=== PATIENT | female | born 1975 | race Caucasian/White ===

== ENCOUNTER 2025-07-29 01:06 | Emergency (ER) | payer MEDICAID ==
[~2025-07-29] VITALS: Ht 172.7 cm; Wt 68.2 kg
--- NOTE | 2025-07-29 01:19 | Physician Documentation ---
History of Present Illness ~ Chief Complaint: Shoulder pain Stated Complaint: SHOULDER PAIN S/P FALL Time Seen by MD: 01:12 Primary Medical Doctor: MASOOD NIX This is a 49-year-old female who had a few drinks earlier in the night, going down the stairs lost her balance and fell down on a concrete floor striking the floor with her left shoulder. She reports an immediate onset sharp nonradiating pain in her right upper extremity/right shoulder. Worse with a any range of motion. Palliated with the position of comfort. Did not attempt to treat it with a any medication. She reports that her shoulder feels crunchy. Adamantly denies any head strike. Denies any headache or neck pain. Did not lose consciousness. Denies any other symptoms. Medication Reconciliation Allergies: Coded Allergies: Penicillins (Unverified Allergy, Unknown, 07/29/25) Past Medical History Past Medical History: No Pertinent History Alcohol Use: None Drug Use: none Review of Systems ROS 10 point review of systems was performed and unless noted above in HPI is negative for acute process/complaint. Physical Exam Vital Signs: Temperature: 96.8, Source: Temporal, Heart Rate: 80, Respiratory Rate: 15, BP: 120/73, Pulse Oximetry: 98 Physical Exam GENERAL: Awake, alert, oriented, GCS 15, no apparent distress, non-toxic appearing, answers questions, follows commands appropriately. Examined in triage and placed in bed 11 HEENT: Atraumatic, normocephalic, pupils equal, extraocular muscles intact, sclerae anicteric, mucus membranes moist, oropharynx is clear, no stridor. NECK: supple, full active range of motion, trachea midline, no thyromegaly, no lymphadenopathy, no JVD. CARDIOVASCULAR: regular rate/rhythm, no murmurs/gallops/rubs, Pulses are 2+ in all extremities and symmetric. Capillary refill less than 2 seconds. PULMONARY: Nonlabored, good air movement ,no respiratory distress, speaking in full sentences, clear to auscultation bilaterally, no wheezing, no ronchi, no rales, no accessory muscle use. GASTROINTESTINAL: Soft, non-tender, non-distended, normal active bowel sounds, no organomegaly, no pulsatile masses, no CVA tenderness. NEUROLOGIC: Lucid with normal mental status. Normal facial symmetry. Moves all extremities symmetrically and with purpose. No truncal ataxia. Speech is fluid without evidence of dysarthria or aphasia, no focal deficits appreciated. MUSCULOSKELETAL: There is full range of motion of all extremities. There is no joint pain or joint swelling or joint erythema. There is no muscle pain or tenderness or swelling. EXTREMITIES: warm, well-perfused, no cyanosis, no clubbing, no edema, no acute deformities. Skin: warm, dry, no rashes or lesions, no jaundice, no petechiae orpurpura. No ecchymosis. PSYCHIATRIC: Normal affect, normal insight, normal concentration. Focused exam: Left clavicle is examined. It appears to be intact. There is tenderness to palpation over the left humeral head. Range of motion not tested due to pain. No tenderness to palpation of medial or lateral epicondyle of the elbow, full passive range of motion of the elbow. Full range of motion of the wrist fingers. Neurovascularly intact distal to the site of injury. Progress Results/Orders Results/Orders Orders - RAN CALDERON DO Shoulder, Complete (Min 2 Vws) (07/29/25 01:11) * Arm Sling To Be Placed Overn (07/29/25 01:33) Completed Orders - RAN CALDERON DO Shoulder, Complete (Min 2 Vws) (07/29/25 01:11) Ketorolac Trometh 30mg/Ml Vial (Toradol (07/29/25 01:15) Medications Received in ER Medications (Trade) Dose Ordered Sig/Alysia Route PRN Reason Start Time Stop Time Status Last Admin Dose Admin (Toradol inj. 30mg/ml) 30 mg ONCE ONCE IM 07/29/25 01:15 07/29/25 01:16 DC 07/29/25 01:26 30 MG Vital Signs 07/29/25 07/29/25 07/29/25 01:09 01:26 01:29 Temp 96.8 Pulse 80 Resp 15 18 18 B/P (MAP) 120/73 Pulse Ox 98 Medical Decision Making Additional information obtaine: family Findings Facility Status: ED Holds, [facility] process The plan was discussed with the patient, who demonstrates clear understanding of the plan and is in agreement with the plan unless otherwise noted in the chart. All questions have been answered, all concerns were addressed unless otherwise documented. I was available throughout their ED stay for frequent reassessment and questions. Differential Diagnoses (considered and possible or likely): [Fall, acute traumatic pain, alcohol intoxication, left shoulder fracture versus dislocation versus contusion.] ??Differential Diagnoses (considered and unlikely, not requiring evaluation currently): [No evidence of neurovascular injury. She adamantly denies any head injury/head strike. Unlikely subdural, subarachnoid, cervical spine fracture or dislocation.] MDM Data Please see [facility] for the following: Independent Historians and external Records Review. Historian: [Patient] Independent Historians: ?[Family] Medication Management: [Reviewed medication list] Social History and determinants: [Reviewed] Please see the body of the note for the following: Any independent interpretations of ECG, imaging studies. All vitals signs/haemodynamics, ordered tests were independently reviewed and interpreted by myself. Nursing triage complaint and vitals reviewed, additional nursing notes were reviewed as available and I agree unless otherwise noted or documented in contradiction in the chart Vital Signs: Independently reviewed Labs: Independently interpreted Imaging: Independently interpreted Old Medical Records: Independently reviewed, see [facility] for relevant summary and information Pulse Oximetry: [98%] interpreted as [normal on room air] by me Additionally notably showing: [Hemodynamically stable. X-ray shows femoral neck fracture.] Tests considered but not ordered include: [Hematologic workup has been considered but does not appear to be necessary given mechanical nature of the injury.] Social Determinants of Health Impact: Patient was evaluated in [facility], [facility] [place] to healthcare due to below par ratio of patient to medical providers. [] Comorbid Conditions Impacting Present Evaluation and Care/Treatment: [Alcohol intoxication] Management Discussions with other Healthcare Providers: [None] Treatment and Disposition Medication Management (Given or considered): [Pain management]. See EMR for details Consideration for Hospitalization/Escalation/Deescalation of Care: Admission for observation has been considered, [however the patient is able to tolerate p.o., their symptoms are controlled, they are able to rely on oral medications, and their chief complaint/diagnosis can be managed on outpatient basis.] ?ED Course:?[Arm was placed in sling.] ?Shared decision making:?[Patient is hemodynamically stable for discharge home with follow with their primary care provider. [ ] Specific and cautious return precautions provided and discussed with full understanding. Any incidental findings were also discussed and follow up recommendations given. [] All questions answered. Patient/family were able to verbalize back return pre cautions. Patient/family agree to plan. Copies of imaging and laboratory studies were provided.] Code status:?FULL Please see the full Electronic Medical Record for full details of nursing documentation, medications list, other records of complete past medical history and conditions, vital signs, laboratory studies, and any radiologic study interpretations by radiologists. Portions of this note were completed using [employer] dictation software and as a result there may exist minor errors in spelling. I have reviewed elements of past family and social history and agree as included in note. Differential Dx:Considerations: Include: other (See the body of main note) Departure Time of Disposition: 01:43 Disposition: 01 HOME / SELF CARE / HOMELESS Impression: Primary Impression: Fall down stairs Additional Impressions: Acute traumatic pain Closed left humeral fracture Alcohol intoxication Condition: Improved Discharge Instructions: Shoulder Fracture Additional Instructions: Today you were evaluated for injuries sustained while navigating stairs in the state of alcohol intoxication. You broke your humerus. You need to follow-up with the orthopedic surgeon of your choice. Please be careful while getting around on stairs drunk. Referrals: NO PRIMARY CARE PROVIDER (PCP) TORITO KELSEY Jr., MD 2 days Please follow-up with the orthopedic surgeon for your humerus fracture. It is important that you do so in a timely manner, because the fracture extends into the joint space. Failure to do so may result in loss of function of the arm. Prescriptions Hydrocodone Bit/Acetaminophen 5/325 MG ([place] 5/325 MG) 5 Mg/325 Mg Tablet 1 TAB PO Q6H PRN for pain, #14 TAB Do not drink alcohol or do drugs while taking this medication, if you do, you may stop breathing and Prov: RAN CALDERON DO 07/29/25 Naproxen (Naproxen) 375 Mg Tablet 1 TAB PO Q12H for pain for 30 Days, #60 TAB 0 Refills with food Prov: RAN CALDERON DO 07/29/25 Education Educated: Patient Educated regarding: diagnosis, treatment, prognosis, need for follow up Signature Scribe Signature: No scribe Attestation: Date: Jul 29, 2025 Time: 01:19 This note accurately reflects clinical decisions, work performed by myself, DO KVNG Ram NICHOLAS M DO Jul 29, 2025 01:19
[2025-07-29] MEDS: ketorolac trometh 30MG/ML vial 30 MG/ML VIAL IM ONE (01:26)
--- NOTE | 2025-07-29 01:34 | RADIOLOGY REPORT ---
CLINICAL INDICATION: Shoulder Pain TECHNIQUE: 3 views DI SHOULDER, COMPLETE (MIN 2 VWS) Comparison: None FINDINGS: Comminuted, mildly displaced and impacted fracture of the proximal humerus at the surgical neck. No evidence of intra-articular extension. No large soft tissue swelling. Joints remain congruent. Unremarkable imaged chest. IMPRESSION: 1. Comminuted extra-articular left proximal humerus fracture.
[2025-07-29] MEDS ORDERED: HYDR-3965 PO (01:41)
[2025-07-29] MEDS ORDERED: NAPR-1166 PO (01:41)
[2025-07-29 02:07] VITALS: BP 132/80; PULSE 80; RESP 18; TEMP 98.2; O2SAT 99
== END 2025-07-29 02:15 | disposition home or self-care (01) ==
LOC: ER 01:07
DX: S42.302A Unspecified fracture of shaft of humerus, left arm, initial encounter for closed fracture (principal); G89.11 Acute pain due to trauma; F10.129 Alcohol abuse with intoxication, unspecified; Z88.0 Allergy status to penicillin; Y90.9 Presence of alcohol in blood, level not specified; W10.9XXA Fall (on) (from) unspecified stairs and steps, initial encounter; Y93.89 Activity, other specified; Y92.89 Other specified places as the place of occurrence of the external cause; Y99.8 Other external cause status
CPT/HCPCS: 73030; 96372; 99284; J1885; A4565

== ENCOUNTER 2025-08-02 15:47 | Emergency (ER) | payer MEDICAID ==
[~2025-08-02] VITALS: Ht 170.2 cm; Wt 79.8 kg
[~2025-08-02 15:47] MED LIST: HYDR-3965 PO; NAPR-1166 PO
[2025-08-02 15:53] VITALS: BP 157/99; PULSE 95; O2SAT 99
--- NOTE | 2025-08-02 16:02 | Physician Documentation ---
History of Present Illness ~ Chief Complaint: Arm Pain Stated Complaint: ARM/HAND SWELLING Time Seen by MD: 16:01 Primary Medical Doctor: MASOOD NIX This is a 49-year-old female who presents due to worsening of her left arm and hand pain after a recent diagnosis of a displaced left humeral fracture. She presents now envelope sling, with a hand somewhat dependent. Significant swelling to the fingers. No chills or fever, CMS is intact. She reports that she will be having surgery soon. Tetanus within 5 years: No Medication Reconciliation Allergies: Coded Allergies: Penicillins (Unverified Allergy, Unknown, 08/02/25) Scheduled Naproxen (Naproxen), 1 TAB PO Q12H Scheduled PRN Hydrocodone Bit/Acetaminophen 5/325 MG ([place] 5/325 MG), 1 TAB PO Q6H PRN for pain Hydrocodone Bit/Acetaminophen (Hydrocodone-Apap 10-325 Tablet), 1 TAB PO QID PRN PRN for pain Ondansetron 8mg ODT (Ondansetron Odt), 1 TAB PO TID PRN for nausea/vomiting Past Medical History Past Medical History: No Pertinent History Alcohol Use: None Drug Use: none Review of Systems ROS As stated above in the HPI, otherwise all systems are reviewed and negative. Physical Exam Vital Signs: Temperature: 98.2, Source: Oral, Heart Rate: 95, Respiratory Rate: 18, BP: 157/99, Pulse Oximetry: 99, Weight: 79.800 Oxygen Flow Rate: 0 Physical Exam General: Alert, appears uncomfortable. HEENT: PERRL, EOMI, no injection, moist mucous membranes. Neck: Full range of motion. Respiratory: Lungs clear, no respiratory distress. Chest: No accessory muscle use. Cardiovascular: Regular rate and rhythm, no murmurs. Gastrointestinal: Soft, nontender, nondistended. Bowels sounds present. Extremities: Left shoulder in envelope sling. 2+ edema in fingers. CMS intact. Neurologic: Oriented x4. Psychiatric: Normal mood and affect. Skin: Normal color, warm and dry. Progress Results/Orders Results/Orders Orders - TANVI JOSEPH BOTTLE ASSEMBLER Humerus (2vws) (08/02/25 15:59) Completed Orders - TANVI JOSEPH BOTTLE ASSEMBLER Humerus (2vws) (08/02/25 15:59) Hydrocodone/Apap 10/325 ([place] 10/325mg (08/02/25 16:05) Vital Signs 08/02/25 15:53 Temp 98.2 Pulse 95 Resp 18 B/P (MAP) 157/99 Pulse Ox 99 O2 Flow Rate 0 EKG/XRAY/CT/US/VASC/MRI Bone/Soft Tissue X-Ray (Spine) : Additional Comment [facility] [address] , [place], [facility] [id number] DIAGNOSTIC RADIOLOGY Patient: LB BECK Medical Record: [id number] [facility] : 1975, Age: 49 Sex: Female Location: ER Patient Status: REG ER Service Date/Time: 08/02/25/ 1558 Ordering Physician: TANVI JOSEPH NP Exam: HUMERUS (2VWS) CLINICAL INDICATION: PAIN AND SWELLING LEFT HUMERUS TECHNIQUE: DI HUMERUS (2VWS) Comparison: DI SHOULDER, COMPLETE (MIN 2 VWS) on DOS: 07/29/25 FINDINGS/IMPRESSION: : Comminuted and displaced fracture of the proximal humeral metaphysis. Possible artifact versus nondisplaced fracture involving the left posterolateral 7th rib seen on 1 view only. Recommend correlation with point tenderness. Electronically Signed by:MARGARITO CROWLEY MD Date & Time: 08/02/251631 Dictated by: MARGARITO CROWLEY MD Dictation date and time: 08/02/251631 Primary Care Provider: NO PRIMARY CARE PROVIDER cc: TANVI JOSEPH BOTTLE ASSEMBLER ~ Medical Decision Making Additional information obtaine: family Findings Patient seen here recently for left humerus fx. General Diff Dx:Considerations: Include: Abrasion, Contusion, Fracture, Hematoma, Laceration, Malunion, Neurovascular injury, Open fracture Shoulder Diff Dx:Consideration: Include: Other Elbow Diff Dx:Considerations: Include: Other Wrist Diff Dx:Considerations: Include: Other Hand Diff Dx:Considerations: Include: Other Finger Diff Dx:Considerations: Include: Other Departure Time of Disposition: 16:44 Disposition: 01 HOME / SELF CARE / HOMELESS Impression: Primary Impression: Closed left humeral fracture Condition: Stable Discharge Instructions: Humerus Fracture Treated With Immobilization Additional Instructions: No significant changes on xray. Keep your hand elevated above the level of your elbow to minimize left hand swelling. Ice. F/u with ortho for planned surgery. Use the hydrocodone as needed for pain, although no guarantees that the pharmacy will fill it since you were just sent oxycodone. You may need to wait a few days to fill the hydrocodone. Try the nausea medication with the oxycodone and then also take Ibuprofen IF your surgeon has said you can. (You typically have to stop a couple days prior to surgery) Return if worse. Referrals: NO PRIMARY CARE PROVIDER (PCP) Prescriptions Ondansetron 8mg ODT (Ondansetron Odt) 8 Mg Tab.rapdis 1 TAB PO TID PRN for nausea/vomiting, #10 TAB Prov: TANVI JOSEPH NP 08/02/25 Hydrocodone Bit/Acetaminophen (Hydrocodone-Apap 10-325 Tablet) 10mg/325mg T ablet 1 TAB PO QID PRN PRN for pain for 5 Days, #20 TAB Prov: TANVI JOSEPH NP 08/02/25 Education Educated: Patient, Family Educated regarding: diagnosis, treatment, prognosis, need for follow up Signature Scribe Signature: x Attestation: The note accurately reflects work and decisions made by me.Tanvi Min NP 08/02/25 16:43 TANVI JOSEPH NP Aug 02, 2025 16:02
--- NOTE | 2025-08-02 16:34 | RADIOLOGY REPORT ---
CLINICAL INDICATION: PAIN AND SWELLING LEFT HUMERUS TECHNIQUE: DI HUMERUS (2VWS) Comparison: DI SHOULDER, COMPLETE (MIN 2 VWS) on DOS: 07/29/25 FINDINGS/IMPRESSION: : Comminuted and displaced fracture of the proximal humeral metaphysis. Possible artifact versus nondisplaced fracture involving the left posterolateral 7th rib seen on 1 view only. Recommend correlation with point tenderness.
[2025-08-02] MEDS ORDERED: HYDR-3973 PO (16:45)
[2025-08-02] MEDS ORDERED: ONDA-245 PO (16:45)
[2025-08-02 17:17] VITALS: TEMP 98.2
[2025-08-02 17:22] VITALS: RESP 20
[2025-08-02] MEDS: HYDROcodone/acetaminophen 10/325mg tab PO ONE (17:22)
[2025-08-05] MEDS ORDERED: ACET-3669 PO (15:43)
[2025-08-05] MEDS ORDERED: OXYC-658 PO (15:43)
[2025-08-05] MEDS ORDERED: NAPR-56 PO (15:43)
[2025-08-05] MEDS ORDERED: NAPR-1166 PO (18:21)
== END 2025-08-02 17:24 | disposition home or self-care (01) ==
LOC: ER 15:48
DX: S42.202A Unspecified fracture of upper end of left humerus, initial encounter for closed fracture (principal); Z88.0 Allergy status to penicillin; Z79.899 Other long term (current) drug therapy; X58.XXXA Exposure to other specified factors, initial encounter; Y93.89 Activity, other specified; Y92.89 Other specified places as the place of occurrence of the external cause; Y99.8 Other external cause status
CPT/HCPCS: 73060; 99284